=== PATIENT | female | born 1955 | race Caucasian/White ===

== ENCOUNTER → 2017-11-15 | Outpatient (REF) | payer OTHER | LOC: M LAB REF 10:47 | PROVIDERS: ATTEND Internal Medicine Endocrinology, Diabetes & Metabolism | DX: E04.2 Nontoxic multinodular goiter (principal) ==

== ENCOUNTER → 2020-11-18 | Outpatient (CLI) | payer OTHER ==
[~2020-11-18] MED LIST: PROHANCE 279.3MG/ML 15ML VIAL As Ordered ONE
--- NOTE | 2020-11-18 10:42 | REP ---
INDICATION: BENIGN NEOPLASM OF LEFT ADRENAL GLAND. COMPARISON: CT chest [facility] 04/10/2020. TECHNIQUE: Multiple sequences obtained in the axial coronal planes prior to and following the intravenous administration of 15 mL ProHance. FINDINGS: Once again there is a left adrenal nodule visualized. It measures 2.0 x 1.4 cm and is essentially unchanged compared to the prior CT exam. There is diffuse loss of signal within the nodule on the out of phase images, compared to the inphase images. Findings are consistent with an adrenal adenoma. The right adrenal gland is normal. There is an area of focal fatty infiltration anteriorly in the liver near the fissure for the ligamentum teres. Subcentimeter cyst is seen inferiorly in the right lobe of the liver. The patient has had a prior cholecystectomy. There is no significant biliary dilatation. Visualized spleen is unremarkable. The pancreas appears unremarkable. Large benign-appearing cyst containing thin septations is seen in the mid left kidney posteriorly measuring approximately 5.4 cm in diameter. Few other scattered smaller cysts are seen in the right kidney. There is no adenopathy or free fluid in the visualized abdomen. IMPRESSION: There is a 2 cm left adrenal adenoma. Status post cholecystectomy without significant biliary dilatation. Right renal cysts. <Electronically signed by Austin Burks > 11/18/20 [id number]
== END ==
LOC: M RAD 09:00
PROVIDERS: ATTEND Internal Medicine Cardiovascular Disease
DX: D35.02 Benign neoplasm of left adrenal gland (principal); N28.1 Cyst of kidney, acquired; Z90.49 Acquired absence of other specified parts of digestive tract
CPT/HCPCS: 74183; A9576

== ENCOUNTER → 2025-03-01 | Outpatient (CLI) | payer MEDICARE, MEDICAID ==
[~2025-03-01] MED LIST changes: +ALBU8.5H; +ATOR40TA75 PO; +EZET10TA21 PO; +FLON1SPR NARES; +FLUT1BLS8; +FURO20TA2 PO; +GABA-1171 PO; +LISI20TA33 PO; +MONT10TA97 PO; +OMEP-173 PO; +POTA1TAB23 PO; -PROHANCE 279.3MG/ML 15ML VIAL As Ordered ONE; +XOLA150I
== END ==
LOC: M EKG 10:01
PROVIDERS: ATTEND Registered Nurse
DX: I49.2 Junctional premature depolarization (principal)